=== PATIENT | female | born 1930 | race Two or more races ===

== ENCOUNTER 2019-06-28 08:29 | Inpatient (IN) | payer MEDICARE, MEDICAID ==
[~2019-06-28] VITALS: Ht 160 cm; Wt 79.2 kg
[2019-06-28 09:54] LABS: Basophils # (auto) 0.1 uL; Basophils % (auto) 0.6 % (0.0-2.0); Eosinophils # (auto) 0.6 uL; Eosinophils % (auto) 4.8 % (0.0-7.0); Hematocrit 39.7 % (36.0-46.0); Hemoglobin 13.2 g/dL (12.2-16.2); Lymphocytes # (auto) 3.2 uL; Lymphocytes % (auto) 27.4 % (10.0-50.0); Mean Corpuscular Hemoglobin 30.6 pg (28.0-32.0); Mean Corpuscular Hgb Conc. 33.2 g/dL (32.0-36.0); Mean Corpuscular Volume 92.3 fL (80.0-100.0); Monocytes # (auto) 0.9 uL; Monocytes % (auto) 7.5 % (0.0-12.0); Neutrophils % (auto) 59.7 % (37.0-80.0); Nucleated Red Blood Cells % 0.1 %; Platelet Count (auto) 241 10^3/uL (140-450); Red Cell Distribution Width 12.9 % (11.8-14.3); White Blood Cell 11.7 10^3/uL (4.4-10.8)
[2019-06-28] MEDS ORDERED: SODIUM CHLORIDE 0.9% 1,000 ML IV ONE (10:00)
[2019-06-28 10:07] LABS: Partial Thromboplastin Time 21.7 sec (23.64-32.05)
[2019-06-28 10:13] LABS: Alanine Aminotransferase 24 U/L (13-56); Albumin 3.8 g/dL (3.4-5.0); Anion Gap 7 (5-15); Aspartate Aminotransferase 20 U/L (15-37); BUN/Creatinine Ratio 24.8; Blood Urea Nitrogen 25 mg/dL (7-18); Calcium 9.3 mg/dL (8.5-10.1); Carbon Dioxide 24 mmol/L (21-32); Chloride 110 mmol/L (98-107); GFR African American 67 mL/min; GFR Non-African American 55 mL/min; Glucose 142 mg/dL (74-106); Potassium 4.3 mmol/L (3.5-5.1); Sodium 141 mmol/L (136-145)
[2019-06-28 10:26] LABS: Alkaline Phosphatase 74 U/L (45-117); Bilirubin, Total 0.4 mg/dL (0.2-1.0); Total Protein 7.6 g/dL (6.4-8.2)
[2019-06-28 11:52] LABS: Urine Bacteria NONE SEEN /hpf (None Seen); Urine Blood Negative /uL (Negative); Urine Specific Gravity 1.016 (1.001-1.035); Urine WBC 6 /hpf (0 - 5)
[2019-06-28] MEDS ORDERED: DIC10C PO (14:26)
[2019-06-28] MEDS ORDERED: TRAV0.00 EACHEYE (14:26)
[2019-06-28] MEDS ORDERED: DEXL60CA3 PO (14:26)
[2019-06-28] MEDS ORDERED: LEVO25TA6 PO (14:26)
[2019-06-28] MEDS ORDERED: ROSU1TAB13 PO (14:26)
[2019-06-28] MEDS ORDERED: CITA-77 PO (14:26)
[2019-06-28] MEDS ORDERED: DORZ2SOL18 EACHEYE (14:26)
[2019-06-28] MEDS ORDERED: METF-370 PO (14:26)
[2019-06-28] MEDS ORDERED: DONE10TA40 PO (14:26)
[2019-06-28] MEDS ORDERED: NITROGLYCERIN 0.4 MG SL TAB SL PRN (14:30)
[2019-06-28] MEDS ORDERED: DEXTROSE (50%) 50ML SYRG IV PRN (14:30)
[2019-06-28] MEDS ORDERED: MORPHINE SULF INJ 2 MG/ML SYRINGE 1ML IV PRN (14:30)
[2019-06-28] MEDS: CIPROFLOXACIN HCL 500 MG TAB PO SCH ×2 (14:50→22:38)
--- NOTE | 2019-06-28 16:05 | NUR ---
Telemetry admit from ER IDALIA BOYD admitted to Telemetry unit room 290A. AAOX4, [place] speaking, breathing even, unlabored, S1, S2 , abd soft nontender, LBM was last night. Denied of pain nor any discomfort at this time. Patient oriented to Nahun Prescott RN primary RN, unit, room, bed, and unit policies regarding patient care and visiting hours. Patient now on continuous telemetry monitoring, tele box 57 and telemetry reading on arrival to unit is sinus milena 54. Patient placed on bedside oxygen, weighed by bedscale and encouraged to call if they need something. All questions and concerns addressed, patient verbalized understanding. Bed locked in the lowest position, call light within easy reach, will continue to monitor.
[2019-06-28 16:08] VITALS: BP 127/59
--- NOTE | 2019-06-28 16:15 | NUR ---
ROSEMARIE BHATT AT BEDSIDE FOR CARDIOLOGY CONSULT.
[2019-06-28 17:00] VITALS: BP 128/59
[2019-06-28] MEDS: InsuLIN REG 1unit/0.01ml Soln (100units/ml) SC SCH ×2 (17:00→22:40)
[2019-06-28 17:06] VITALS: BP 135/64
[2019-06-28 17:07] VITALS: BP 138/56
[2019-06-28 17:08] VITALS: BP 150/70
[2019-06-28] MEDS: ACCU-CHEK COMFORT CURVE STRIP VI SCH ×2 (17:19→22:39)
--- NOTE | 2019-06-28 19:30 | NUR ---
Opening Shift Note Assumed care of patient, awake and alert; sitting up in bed preparing for discharge. Son at bedside. Bed locked in low position. No S/S of distress/SOB or pain. Instructed on POC and to call for assist PRN, will continue to monitor for changes Q1hr and PRN. Awaiting delivery of w/c and BSC to take home.
--- NOTE | 2019-06-28 21:45 | NUR ---
Pt escorted to pvt vehicle by Sesar Stephens, via w/c with O2 per n/c. Son accompanying. Condition stable. Color good. No s/sx or c/o pain, discomfort or resp diff/SOB.
[2019-06-28 22:00] VITALS: BP_SYST 125; BP_SYST 131; BP_SYST 137; BP_DIAS 54; BP_DIAS 66; BP_DIAS 67
[2019-06-28] MEDS: DORZOLAMIDE HCL 2% OPTH(EYE) SOL 10ML EACHEYE SCH (22:00)
[2019-06-28] MEDS: ATORVASTATIN 20 MG TAB PO SCH (22:37)
[2019-06-28] MEDS: DONEPEZIL HYDROCHLORIDE 5 MG TAB PO SCH (22:37)
[2019-06-28] MEDS ORDERED: IBUPROFEN 600 MG TAB PO ONE (23:00)
[2019-06-29] VITALS (9 sets, daily range): BP systolic 124–156; BP diastolic 55–72
[2019-06-29] MEDS: LEVOTHYROXINE SODIUM 25 MCG TAB PO SCH (06:29)
[2019-06-29] MEDS: InsuLIN REG 1unit/0.01ml Soln (100units/ml) SC SCH ×4 (06:30→21:47)
[2019-06-29] MEDS: ACCU-CHEK COMFORT CURVE STRIP VI SCH ×4 (06:30→21:44)
--- NOTE | 2019-06-29 07:30 | NUR ---
Opening Shift Note Assumed care of patient, awake and alert. No S/S of distress/SOB or pain. Bed is in lowest position with 2x side rails up for safety. Call light is within reach. Instructed on POC and to call for assist PRN, will continue to monitor for changes Q1hr and PRN.
--- NOTE | 2019-06-29 09:07 | NUR ---
IV insertion IV access obtained to the right hand, via clean sterile technique by inserting a 22 gauge catheter. IV secured properly. No trauma to site. Patient tolerated well.
[2019-06-29] MEDS ORDERED: ADENOSINE 59 MG in GIVE UN-DILUTED 0 ML IV ONE (09:15)
[2019-06-29] MEDS: PANTOPRAZOLE 40 MG TAB PO SCH (09:19)
[2019-06-29] MEDS: CITALOPRAM HYDROBR 20 MG TAB PO SCH (09:19)
[2019-06-29] MEDS: ASPirin 81 mg TAB PO SCH (09:20)
[2019-06-29] MEDS: DORZOLAMIDE HCL 2% OPTH(EYE) SOL 10ML EACHEYE SCH ×2 (09:57→21:44)
[2019-06-29] MEDS: CIPROFLOXACIN HCL 500 MG TAB PO SCH ×2 (10:00→21:42)
--- NOTE | 2019-06-29 10:30 | NUR ---
FAMILY AT BEDSIDE Son is at bedside, updated on POC.
--- NOTE | 2019-06-29 10:30 | NUR ---
EKG EKG done as ordered and placed in chart.
--- NOTE | 2019-06-29 10:50 | NUR ---
PATIENT DOWN AT STRESS TEST.
[2019-06-29] MEDS: SODIUM CHLORIDE 0.9% 1,000 ML IV SCH (12:45)
--- NOTE | 2019-06-29 14:15 | NUR ---
Pt at medical lab assistant Pt down at medical lab assistant for scheduled procedure.
[2019-06-29 14:34] LABS: Basophils # (auto) 0 uL; Basophils % (auto) 0.5 % (0.0-2.0); Eosinophils # (auto) 0.4 uL; Eosinophils % (auto) 3.9 % (0.0-7.0); Hematocrit 34.9 % (36.0-46.0); Hemoglobin 11.5 g/dL (12.2-16.2); Lymphocytes # (auto) 2.5 uL; Lymphocytes % (auto) 27.1 % (10.0-50.0); Mean Corpuscular Hemoglobin 30.5 pg (28.0-32.0); Mean Corpuscular Hgb Conc. 32.9 g/dL (32.0-36.0); Mean Corpuscular Volume 92.6 fL (80.0-100.0); Monocytes # (auto) 0.7 uL; Monocytes % (auto) 7.6 % (0.0-12.0); Neutrophils # (auto) 5.6 uL; Neutrophils % (auto) 60.9 % (37.0-80.0); Platelet Count (auto) 219 10^3/uL (140-450); Red Blood Cells 3.77 10^6/uL (4.0-5.20); Red Cell Distribution Width 13.2 % (11.8-14.3); White Blood Cell 9.1 10^3/uL (4.4-10.8)
[2019-06-29 14:51] LABS: BUN/Creatinine Ratio 21.1; Calcium 8.5 mg/dL (8.5-10.1); Potassium 4.2 mmol/L (3.5-5.1)
[2019-06-29 14:55] LABS: INR 1.04 (0.9-1.15); Partial Thromboplastin Time 25.8 sec (23.64-32.05)
[2019-06-29] MEDS ORDERED: VERAPAMIL 2.5MG/ML INJ 2ML VIAL IV ONE (15:57)
[2019-06-29] MEDS ORDERED: MIDAZOLAM HCL 1MG/1ML-2 ML VIAL ONE (15:58)
[2019-06-29] MEDS ORDERED: SODIUM CHL 0.9% 0 ML ONE (15:58)
[2019-06-29] MEDS ORDERED: fentaNYL CITRATE 100 MCG/2 ML VL ONE (15:58)
[2019-06-29] MEDS ORDERED: LIDOCAINE 2%HCL (LOCAL ANESTH.) INJ 20ML MDV ONE (15:58)
[2019-06-29] MEDS ORDERED: ANGIOMAX 250 MG VIAL IV ONE (15:59)
[2019-06-29] MEDS ORDERED: HEPARIN SODIUM (PORCINE) 5000 UNITS/ML 1ML VIAL ONE (16:17)
[2019-06-29] MEDS ORDERED: IODIXANOL 320MG/ML 100ML BTL IV ONE (16:40)
--- NOTE | 2019-06-29 19:30 | NUR ---
OPENING NOTE REPORT RECEIVED FROM DAY SHIFT RN PATIENT IS A/OX4, AZER[place] SPEAKING ONLY. PATIENT IS S/P LEFT HEART CATH. INCISION TO RIGHT GROIN IS C/D/I, NO SIGNS OF ACTIVE BLEED OR HEMATOMA NOTED. POST [employer] TEAM MEMBER VITALS TO BE TAKEN Q1H X 4 TIMES, WILL CR OUT ORDER. POC FOR TONIGHT DISCUSSED AND ALL QUESTIONS ANSWERED. FALL PRECAUTIONS IN PLACE, CALL LIGHT WITHIN REACH.
[2019-06-29] MEDS: ATORVASTATIN 20 MG TAB PO SCH (21:41)
[2019-06-29] MEDS: DONEPEZIL HYDROCHLORIDE 5 MG TAB PO SCH (21:42)
[2019-06-30] MEDS: SODIUM CHLORIDE 0.9% 1,000 ML IV SCH ×2 (02:21→15:25)
[2019-06-30 05:00] VITALS: BP 132/67
[2019-06-30] MEDS: ACCU-CHEK COMFORT CURVE STRIP VI SCH ×3 (06:26→16:57)
[2019-06-30] MEDS: LEVOTHYROXINE SODIUM 25 MCG TAB PO SCH (06:26)
[2019-06-30] MEDS: InsuLIN REG 1unit/0.01ml Soln (100units/ml) SC SCH ×3 (06:28→16:57)
--- NOTE | 2019-06-30 07:00 | NUR ---
CLOSING PATIENT IS RESTING IN BED, NO S/S OF DISTRESS. DRESSING TO RIGHT GROIN REMAINS C/D/I, NO SIGNS OF HEMATOMA OR ACTIVE BLEED NOTED. FALL PRECAUTIONS IN PLACE, CALL LIGHT WITHIN REACH. Addendum: 06/30/19 at 0701 by Trang Blake RN WILL ENDORSE CARE TO [facility]
--- NOTE | 2019-06-30 07:40 | NUR ---
Opening Note Assumed pt care from [facility] nurse. Pt is a/ox4 with no s/s of distress or SOB. Pt is currently laying in bed with no complaints. Discussed POC with pt; pt verbalized understanding. Safety measures maintained with call light within reach, bed in lowest position and side rails up. Will continue to monitor for changes q1hr and prn.
[2019-06-30 09:00] VITALS: BP 126/52
[2019-06-30] MEDS: PANTOPRAZOLE 40 MG TAB PO SCH (09:03)
[2019-06-30] MEDS: CIPROFLOXACIN HCL 500 MG TAB PO SCH (09:03)
[2019-06-30] MEDS: ASPirin 81 mg TAB PO SCH (09:03)
[2019-06-30] MEDS: CITALOPRAM HYDROBR 20 MG TAB PO SCH (09:03)
[2019-06-30] MEDS: DORZOLAMIDE HCL 2% OPTH(EYE) SOL 10ML EACHEYE SCH (09:04)
--- NOTE | 2019-06-30 12:16 | NUR ---
Patient's Son Called Son, Martha, called and requested that Dr Dawn call and speak to him regarding plan of care as far as discharge planning. Phone number is [phone]. Will inform MD of pt's request.
--- NOTE | 2019-06-30 12:31 | NUR ---
Dr Nelson at Bedside Spoke with pt as well as pt's son about plan of care. MD stated that pt is able to be d/c'ed post echo results being read. To notify the patient's son pending results for plans for d/c. Will implement and follow through.
[2019-06-30 13:00] VITALS: BP 128/50
[2019-06-30 13:16] VITALS: BP 126/52
--- NOTE | 2019-06-30 14:08 | NUR ---
Trish Benitez NP for Echo Results for Pending D/C Awaiting results for d/c.
--- NOTE | 2019-06-30 16:15 | NUR ---
Spoke with ROSEMARIE Benitez Regarding D/C Pending Echo [employer] stated that her EF is <60 and does not see any cause for concern. Will follow through with d/c. Left message for son regarding d/c approval.
[2019-06-30 16:52] VITALS: BP 133/62
--- NOTE | 2019-06-30 16:58 | NUR ---
IV D/C'ed IV's to L AC and R hand removed fully intact. Site is asymptomatic. Pressure applied with gauze for 3 minutes and then wrapped in coban. Pt instructed to keep dressing on for 30 minutes. Pt verbalized understanding.
--- NOTE | 2019-06-30 17:10 | NUR ---
Pt D/C'ed Off Unit Pt discharged off unit via wheelchair accompanied by her son. Pt has all belongings, education material, as well as follow up appointments. IVs were d/c'ed and Telebox was removed and sent back to ICU. Pt is a/ox4 with no s/s of distress or SOB.
== END 2019-06-30 17:10 | disposition home or self-care (01) | DRG 287 ==
LOC: ER 08:29 → TELE 08:30 → TELE-WESTW 16:05
PROVIDERS: ADMIT Internal Medicine; ATTEND Internal Medicine
PROC: B2111ZZ Fluoroscopy of Multiple Coronary Arteries using Low Osmolar Contrast (ICD-10-PCS; principal; 2019-06-29)
PROC: 4A023N7 Measurement of Cardiac Sampling and Pressure, Left Heart, Percutaneous Approach (ICD-10-PCS; 2019-06-29)
PROC: B2151ZZ Fluoroscopy of Left Heart using Low Osmolar Contrast (ICD-10-PCS; 2019-06-29)
DX: R07.89 Other chest pain (principal); E03.9 Hypothyroidism, unspecified; E11.9 Type 2 diabetes mellitus without complications; E78.5 Hyperlipidemia, unspecified; H40.9 Unspecified glaucoma; F32.9 Major depressive disorder, single episode, unspecified; R00.1 Bradycardia, unspecified; Z82.5 Family history of asthma and other chronic lower respiratory diseases; Z88.1 Allergy status to other antibiotic agents; Z88.0 Allergy status to penicillin; Z88.2 Allergy status to sulfonamides; Z88.8 Allergy status to other drugs, medicaments and biological substances
CPT/HCPCS: 36415; 71045; 78452; 80048; 80053; 81001; 82533; 82962; 83036; 84443; 84484; 85025; 85610; 85730; 86850; 86900; 86901; 93005; 93017; 93306; 93458; 93886; 96361; 96365; 99152; G0378; J0153; J1815; J2250; Q9967

== ENCOUNTER → 2020-09-21 | Outpatient (CLI) | payer MEDICARE, MEDICAID ==
[~2020-09-21] MED LIST: CITA-77 PO; DEXL60CA4 PO; DICY10CA PO; DONE1TAB88 PO; DORZ2SOL18 EACHEYE; LEVO25TA6 PO; METF-370 PO; ROSU1TAB13 PO; TRAV0.00 EACHEYE
== END | disposition home or self-care (01) ==
LOC: LAB 15:33
PROVIDERS: ATTEND Nurse Practitioner Family
DX: U07.1 COVID-19 (principal)
CPT/HCPCS: C9803; U0003

== ENCOUNTER 2020-12-19 09:07 | Emergency (ER) | payer MEDICARE, MEDICAID ==
[~2020-12-19] VITALS: Ht 152.4 cm; Wt 72.6 kg
[2020-12-19 10:36] LABS: Basophils # (auto) 0.1 10 ^3/uL (0-0.2); Basophils % (auto) 0.6 % (0.0-2.0); Eosinophils # (auto) 0.2 10 ^3/uL (0-0.8); Eosinophils % (auto) 2.2 % (0.0-7.0); Hematocrit 37.3 % (36.0-46.0); Hemoglobin 12.5 g/dL (12.2-16.2); Lymphocytes # (auto) 2.6 10 ^3/uL (0.4-5.4); Lymphocytes % (auto) 23.8 % (10.0-50.0); Mean Corpuscular Hemoglobin 30.1 pg (28.0-32.0); Mean Corpuscular Hgb Conc. 33.5 g/dL (32.0-36.0); Monocytes # (auto) 0.9 10 ^3/uL (0-1.3); Monocytes % (auto) 7.7 % (0.0-12.0); Neutrophils # (auto) 7.2 10 ^3/uL (1.6-8.6); Neutrophils % (auto) 65.7 % (37.0-80.0); Platelet Count (auto) 268 10^3/uL (140-450); Red Blood Cells 4.14 10^6/uL (4.0-5.20); Red Cell Distribution Width 12.7 % (11.8-14.3)
[2020-12-19] MEDS ORDERED: MORPHINE SULFATE 4 MG/ML SYR/VIAL IV ONE (10:45)
[2020-12-19] MEDS ORDERED: SODIUM CHLORIDE 0.9% 1,000 ML IV ONE (10:45)
[2020-12-19] MEDS ORDERED: SODIUM CHLORIDE 0.9% 500 ML IVB ONE (10:45)
[2020-12-19] MEDS ORDERED: ONDANSETRON HCL 4 MG/2 ML VIAL IV ONE (10:45)
[2020-12-19 10:56] LABS: Albumin 3.4 g/dL (3.4-5.0); Calcium 9.4 mg/dL (8.5-10.1); Potassium 4.2 mmol/L (3.5-5.1)
[2020-12-19 10:59] LABS: BUN/Creatinine Ratio 22.5; Bilirubin, Total 0.4 mg/dL (0.2-1.0); Total Protein 7.4 g/dL (6.4-8.2)
[2020-12-19 11:15] LABS: Urine Bacteria FEW /hpf (None Seen); Urine Blood Negative /uL (Negative); Urine Hyaline Cast FEW /lpf (0 - 2); Urine WBC 1 /hpf (0 - 5)
[2020-12-19 11:20] LABS: Lactic Acid w/Reflex 3.2 mmol/L (0.4-2.0)
[2020-12-19 11:25] LABS: Magnesium 1.6 mg/dL (1.6-2.6)
[2020-12-19 12:00] VITALS: BP 134/50
== END 2020-12-19 13:42 | disposition home or self-care (01) ==
LOC: ER 09:07
DX: E11.21 Type 2 diabetes mellitus with diabetic nephropathy (principal); H81.4 Vertigo of central origin; E46 Unspecified protein-calorie malnutrition; F03.90 Unspecified dementia, unspecified severity, without behavioral disturbance, psychotic disturbance, mood disturbance, and anxiety; E78.5 Hyperlipidemia, unspecified; Z90.49 Acquired absence of other specified parts of digestive tract; Z79.899 Other long term (current) drug therapy; Z88.8 Allergy status to other drugs, medicaments and biological substances; Z88.0 Allergy status to penicillin
CPT/HCPCS: 36415; 71045; 74176; 80053; 81001; 82962; 83605; 83690; 83735; 84443; 85025; 93005; 96361; 96374; 96375; 99285; J2270; J2405; J7030

== ENCOUNTER → 2021-04-03 | Outpatient (CLI) | payer MEDICARE, MEDICAID ==
[2021-04-01 11:54] LABS: Basophils # (auto) 0.1 10 ^3/uL (0-0.2); Basophils % (auto) 0.7 % (0.0-2.0); Eosinophils # (auto) 0.2 10 ^3/uL (0-0.8); Eosinophils % (auto) 2.6 % (0.0-7.0); Hematocrit 37.7 % (36.0-46.0); Hemoglobin 12.7 g/dL (12.2-16.2); Lymphocytes # (auto) 3.2 10 ^3/uL (0.4-5.4); Lymphocytes % (auto) 34.1 % (10.0-50.0); Mean Corpuscular Hemoglobin 30.7 pg (28.0-32.0); Mean Corpuscular Hgb Conc. 33.7 g/dL (32.0-36.0); Mean Corpuscular Volume 91.3 fL (80.0-100.0); Monocytes # (auto) 0.6 10 ^3/uL (0-1.3); Monocytes % (auto) 6.8 % (0.0-12.0); Neutrophils # (auto) 5.2 10 ^3/uL (1.6-8.6); Neutrophils % (auto) 55.8 % (37.0-80.0); Nucleated Red Blood Cells % 0.1 %; Red Blood Cells 4.13 10^6/uL (4.0-5.20); Red Cell Distribution Width 12.8 % (11.8-14.3); White Blood Cell 9.3 10^3/uL (4.4-10.8)
[2021-04-01 12:09] LABS: Urine Bacteria NONE SEEN /hpf (None Seen); Urine Blood Negative /uL (Negative); Urine Specific Gravity 1.024 (1.001-1.035); Urine WBC 30 /hpf (0 - 5)
[2021-04-01 12:38] LABS: Albumin 3.5 g/dL (3.4-5.0); Potassium 4.8 mmol/L (3.5-5.1)
[2021-04-01 12:52] LABS: BUN/Creatinine Ratio 20.2; Bilirubin, Total 0.4 mg/dL (0.2-1.0); Total Protein 8.2 g/dL (6.4-8.2)
[~2021-04-03] VITALS: Ht 160 cm; Wt 72.6 kg
[~2021-04-03] MED LIST changes: -DICY10CA PO; -DORZ2SOL18 EACHEYE; +GEMF-19 PO; +LIDOCAINE VISCOUS 2% 15ML UD ONE; +MIDAZOLAM HCL 5 MG/ML-1ML VIAL ONE; +SODIUM CHLORIDE LOCK 10 ML ONE; -TRAV0.00 EACHEYE; +diphenhdrAMINE HCL 50 MG/1 ML VL ONE; +fentaNYL CITRATE 100 MCG/2 ML VL ONE
== END | disposition home or self-care (01) ==
LOC: GI 11:00 → EDSTATUS 12:45
PROVIDERS: ATTEND Internal Medicine Gastroenterology
DX: R10.13 Epigastric pain (principal); Z88.8 Allergy status to other drugs, medicaments and biological substances; Z88.1 Allergy status to other antibiotic agents; Z88.0 Allergy status to penicillin; Z20.822 Contact with and (suspected) exposure to COVID-19; Z98.890 Other specified postprocedural states; Z79.899 Other long term (current) drug therapy; Z53.8 Procedure and treatment not carried out for other reasons
CPT/HCPCS: 36415; 80053; 81001; 85025; U0003; J2250

== ENCOUNTER → 2022-01-22 | Outpatient (CLI) | payer MEDICARE, MEDICAID ==
[~2022-01-22] MED LIST changes: -LIDOCAINE VISCOUS 2% 15ML UD ONE; -MIDAZOLAM HCL 5 MG/ML-1ML VIAL ONE; -SODIUM CHLORIDE LOCK 10 ML ONE; -diphenhdrAMINE HCL 50 MG/1 ML VL ONE; -fentaNYL CITRATE 100 MCG/2 ML VL ONE
[2022-01-22 10:50] LABS: Basophils # (auto) 0.1 10 ^3/uL (0-0.2); Basophils % (auto) 0.8 % (0.0-2.0); Eosinophils # (auto) 0.3 10 ^3/uL (0-0.8); Eosinophils % (auto) 3.6 % (0.0-7.0); Hematocrit 37.6 % (36.0-46.0); Hemoglobin 12.4 g/dL (12.2-16.2); Lymphocytes # (auto) 3.1 10 ^3/uL (0.4-5.4); Lymphocytes % (auto) 31.2 % (10.0-50.0); Mean Corpuscular Hemoglobin 28.7 pg (28.0-32.0); Mean Corpuscular Hgb Conc. 32.9 g/dL (32.0-36.0); Mean Corpuscular Volume 87.4 fL (80.0-100.0); Monocytes # (auto) 0.8 10 ^3/uL (0-1.3); Monocytes % (auto) 7.8 % (0.0-12.0); Neutrophils # (auto) 5.5 10 ^3/uL (1.6-8.6); Neutrophils % (auto) 56.6 % (37.0-80.0); Red Blood Cells 4.31 10^6/uL (4.0-5.20); Red Cell Distribution Width 13.7 % (11.8-14.3); White Blood Cell 9.8 10^3/uL (4.4-10.8)
[2022-01-22 10:59] LABS: Potassium 4.5 mmol/L (3.5-5.1)
[2022-01-22 11:06] LABS: Albumin 3.3 g/dL (3.4-5.0); BUN/Creatinine Ratio 17.6; Calcium 9.8 mg/dL (8.5-10.1)
[2022-01-22 11:08] LABS: Bilirubin, Total 0.5 mg/dL (0.2-1.0); Total Protein 7.7 g/dL (6.4-8.2)
== END | disposition home or self-care (01) ==
LOC: LAB 08:45
PROVIDERS: ATTEND Internal Medicine
DX: E11.9 Type 2 diabetes mellitus without complications (principal); Z00.00 Encounter for general adult medical examination without abnormal findings
CPT/HCPCS: 36415; 80053; 83036; 85025